=== PATIENT | female | born 1970 | race Caucasian/White ===

== ENCOUNTER 2022-06-13 22:47 | Inpatient (IN) | payer MEDICARE, OTHER ==
[~2022-06-13] VITALS: Ht 160 cm; Wt 63.5 kg
[2022-06-13 23:30] VITALS: BP 103/66
[2022-06-13] MEDS ORDERED: MAGNESIUM HYDROXIDE 30 ML UDC PO PRN (23:30)
[2022-06-13] MEDS ORDERED: MAG HYDROX/AL HYDROX/SIMETH 30 ML UDC PO PRN (23:30)
[2022-06-13] MEDS ORDERED: ACETAMINOPHEN 325 MG TABLET PO PRN (23:30)
[2022-06-13] MEDS ORDERED: BLOOD SUGAR DIAGNOSTIC 1 EACH STRIP IN ONE (23:30)
[2022-06-13] MEDS ORDERED: ZOLPIDEM TARTRATE 5 MG TABLET PO PRN (23:30)
[2022-06-14] MEDS ORDERED: BUPR100T5 PO (00:09)
[2022-06-14] MEDS ORDERED: GABA-532 PO (00:09)
[2022-06-14] MEDS ORDERED: OLAN15TA3 PO (00:09)
[2022-06-14 07:40] LABS: ALBUMIN 3.6 g/dL (3.4-5.0); BILIRUBIN,TOTAL 0.3 mg/dL (0.2-1.0); CALCIUM, SERUM 8.7 mg/dL (8.5-10.1); CREATININE 0.9 mg/dL (0.6-1.3); POTASSIUM 4.2 mmol/L (3.5-5.1); TOTAL PROTEIN, SERUM 6.8 g/dL (6.4-8.2)
[2022-06-14 07:42] LABS: CHOLESTEROL 147 mg/dL (<200); HDL CHOLESTEROL 59 mg/dL (40-60); LDL 79 mg/dL (0-99); TRIGLYCERIDES 55 mg/dL (30-150)
[2022-06-14 08:00] VITALS: BP 96/59
[2022-06-14] MEDS: NICOTINE PATCH (21MG) 21 MG PATCH.TD24 TD SCH (08:32)
[2022-06-14] MEDS: GABAPENTIN 300 MG CAPSULE PO SCH ×2 (08:32→16:32)
[2022-06-14] MEDS: SERTRALINE HCL 50 MG TABLET PO SCH (13:18)
[2022-06-14 16:00] VITALS: BP 102/60
[2022-06-14] MEDS: NITROFURANTOIN/MONOHYDRATE MACROCRYSTALS 100 MG CAPSULE PO SCH (16:32)
[2022-06-14] MEDS: OLANZAPINE 10 MG TABLET PO SCH (21:33)
[2022-06-15 08:00] VITALS: BP 106/56
[2022-06-15] MEDS: NICOTINE PATCH (21MG) 21 MG PATCH.TD24 TD SCH (08:14)
[2022-06-15] MEDS: NITROFURANTOIN/MONOHYDRATE MACROCRYSTALS 100 MG CAPSULE PO SCH ×2 (08:14→16:18)
[2022-06-15] MEDS: GABAPENTIN 300 MG CAPSULE PO SCH ×2 (08:15→16:18)
[2022-06-15] MEDS: SERTRALINE HCL 50 MG TABLET PO SCH (08:15)
[2022-06-15] MEDS: LORAZEPAM 0.5 MG TABLET PO PRN (08:19)
[2022-06-15 10:10] LABS: BILIRUBIN,URINE NEGATIVE (NEGATIVE); COLOR,URINE DARK YELLOW (YELLOW); LEUKOCYTE ESTERASE ,URINE TRACE (NEGATIVE); NITRITE, URINE NEGATIVE (NEGATIVE); PH,URINE 5.5 (5.0-8.0); PROTEIN,URINE NEGATIVE (NEGATIVE); UGLUCOSE NEGATIVE (NEGATIVE); UROBILINOGEN,URINE 0.2 EU/dL (0.2)
[2022-06-15 10:45] LABS: BACTERIA,URINE Few /HPF (None Seen); RBC,URINE 0-2 /HPF (0-2); SQUAMOUS EPITHELIAL CELL,UR Few /HPF (None Seen); WBC,URINE 0-2 /HPF (0-3)
[2022-06-15 10:46] LABS: CALCIUM OXALATE CRYSTALS,UR Rare /HPF (None Seen); URINE AMORPHOUS URATE Many /HPF (None Seen)
[2022-06-15 16:00] VITALS: BP 137/74
[2022-06-15 20:00] VITALS: BP 126/72
[2022-06-15] MEDS: OLANZAPINE 10 MG TABLET PO SCH (21:09)
[2022-06-16 08:00] VITALS: BP 113/73
[2022-06-16] MEDS: NICOTINE PATCH (21MG) 21 MG PATCH.TD24 TD SCH (08:09)
[2022-06-16] MEDS: NITROFURANTOIN/MONOHYDRATE MACROCRYSTALS 100 MG CAPSULE PO SCH ×2 (08:10→16:27)
[2022-06-16] MEDS: GABAPENTIN 300 MG CAPSULE PO SCH ×2 (08:10→16:27)
[2022-06-16] MEDS: SERTRALINE HCL 50 MG TABLET PO SCH (08:10)
[2022-06-16 16:00] VITALS: BP 129/68
[2022-06-16 20:00] VITALS: BP 106/55
[2022-06-16] MEDS: OLANZAPINE 10 MG TABLET PO SCH (21:18)
[2022-06-17] MEDS: GABAPENTIN 300 MG CAPSULE PO SCH ×2 (07:53→16:53)
[2022-06-17] MEDS: NITROFURANTOIN/MONOHYDRATE MACROCRYSTALS 100 MG CAPSULE PO SCH ×2 (07:53→16:53)
[2022-06-17] MEDS: SERTRALINE HCL 50 MG TABLET PO SCH ×2 (07:54→16:53)
[2022-06-17] MEDS: NICOTINE PATCH (21MG) 21 MG PATCH.TD24 TD SCH (07:54)
[2022-06-17] MEDS: LORAZEPAM 0.5 MG TABLET PO PRN (07:54)
[2022-06-17 08:00] VITALS: BP 110/63
[2022-06-17 16:00] VITALS: BP 100/59
[2022-06-17 20:17] VITALS: BP 135/91
[2022-06-17] MEDS: OLANZAPINE 10 MG TABLET PO SCH (21:21)
[2022-06-18 08:00] VITALS: BP 119/70
[2022-06-18] MEDS: GABAPENTIN 300 MG CAPSULE PO SCH ×2 (08:52→16:21)
[2022-06-18] MEDS: NITROFURANTOIN/MONOHYDRATE MACROCRYSTALS 100 MG CAPSULE PO SCH ×2 (08:52→16:21)
[2022-06-18] MEDS: SERTRALINE HCL 50 MG TABLET PO SCH ×2 (08:53→16:21)
[2022-06-18] MEDS: NICOTINE PATCH (21MG) 21 MG PATCH.TD24 TD SCH (08:53)
[2022-06-18] MEDS: LORAZEPAM 0.5 MG TABLET PO PRN (08:54)
[2022-06-18 16:00] VITALS: BP 103/60
[2022-06-18 20:00] VITALS: BP 100/62
[2022-06-18] MEDS: OLANZAPINE 10 MG TABLET PO SCH (21:22)
[2022-06-19 07:13] LABS: BASOPHILS # (AUTO) 0.1 K/uL (0.0-0.2); BASOPHILS % (AUTO) 1.2 % (0.0-2.0); EOSINOPHILS % (AUTO) 3.7 % (0.0-6.0); HEMATOCRIT 39 % (33-45); HEMOGLOBIN 12.5 g/dL (11.5-14.8); LYMPHOCYTES # (AUTO) 2.2 K/uL (0.8-4.8); LYMPHOCYTES % (AUTO) 43.2 % (20.0-44.0); MEAN CORPUSCULAR HGB CONC 32 g/dl (31.0-36.0); MEAN CORPUSCULAR VOLUME 85 fL (82-100); MONOCYTES # (AUTO) 0.5 K/uL (0.1-1.30); NEUTROPHILS # (AUTO) 2.2 K/uL (1.8-8.9); NEUTROPHILS % (AUTO) 42.9 % (43.0-81.0); PLATELET COUNT (AUTO) 217 K/uL (150-450); WHITE BLOOD COUNT (AUTO) 5.1 K/uL (4.3-11.0)
[2022-06-19 08:00] VITALS: BP 101/51
[2022-06-19] MEDS: NICOTINE PATCH (21MG) 21 MG PATCH.TD24 TD SCH (09:06)
[2022-06-19] MEDS: SERTRALINE HCL 50 MG TABLET PO SCH (09:06)
[2022-06-19] MEDS: GABAPENTIN 300 MG CAPSULE PO SCH (09:06)
[2022-06-19] MEDS: NITROFURANTOIN/MONOHYDRATE MACROCRYSTALS 100 MG CAPSULE PO SCH (09:06)
[2022-06-19] MEDS: LORAZEPAM 0.5 MG TABLET PO PRN (10:25)
== END 2022-06-19 12:55 | disposition left against medical advice (07) | DRG 885 ==
LOC: GPS 22:47
PROVIDERS: ADMIT Psychiatry & Neurology Psychiatry; ATTEND Nurse Practitioner Acute Care
DX: F31.9 Bipolar disorder, unspecified (principal); F43.10 Post-traumatic stress disorder, unspecified; F90.9 Attention-deficit hyperactivity disorder, unspecified type; F41.1 Generalized anxiety disorder; F15.10 Other stimulant abuse, uncomplicated; F12.10 Cannabis abuse, uncomplicated; F60.9 Personality disorder, unspecified
CPT/HCPCS: 36415; 80053-TC; 80061-TC; 81001; 82962-TC; 84443-TC; 85025-TC; 87081-TC; 87086-TC